=== PATIENT | female | born 1990 | race Caucasian/White ===

== ENCOUNTER 2018-02-27 03:53 | Emergency (ER) | payer MEDICAID ==
[~2018-02-27] VITALS: Ht 177.8 cm; Wt 88.5 kg
[2018-02-27 03:58] VITALS: BP_SYST 133
[2018-02-27 04:50] VITALS: BP_SYST 131
== END 2018-02-27 04:50 | disposition home or self-care (01) ==
LOC: SED 03:53
DX: F41.9 Anxiety disorder, unspecified (principal); R00.2 Palpitations; R11.0 Nausea; F17.200 Nicotine dependence, unspecified, uncomplicated; Z90.49 Acquired absence of other specified parts of digestive tract
CPT/HCPCS: 93005; 99283